=== PATIENT | female | born 1945 | race Caucasian/White ===

== ENCOUNTER → 2017-04-15 | Outpatient (CLI) | payer OTHER ==
[~2017-04-15] MED LIST: CMD1 PO; DLD2 PO; FRRG PO; LSXUNK; MULT-506 PO
--- NOTE | 2017-04-18 12:30 | MAMMOGRAPHY REPORT ---
BILATERAL DIGITAL SCREENING MAMMOGRAM WITH CAD: 04/15/2017 CLINICAL HISTORY: Routine screening. Patient has no complaints. TECHNIQUE: Current study was also evaluated with a Computer Aided Detection (CAD) system. Bilateral CC and MLO views were obtained. COMPARISON: Comparison is made to exams dated: 02/27/2016 mammogram, 01/24/2015 mammogram, 01/18/2014 ma mmogram, 01/12/2013 mammogram, 01/07/2012 mammogram, and 10/30/2010 mammogram - [facility]. BREAST COMPOSITION: There are scattered areas of fibroglandular density in both breasts. FINDINGS: No suspicious masses, calcifications, or areas of architectural distortion are noted in ei ther breast. There has been no significant interval change compared to prior exams. IMPRESSION: ACR BI-RADS CATEGORY 1: NEGATIVE There is no mammographic evidence of malignancy. A 1 year screening mammogram is recommended. The pa tient will receive written notification of the results. Approximately 10% of breast cancers are not detected with mammography. A negative mammographic report should not delay biopsy if a clinically suggestive mass is present. Geovanna Kimble M.D. /:04/15/2017 16:27:50 Art Appraiser: [place]), [facility] letter sent: Normal 1/2 BI-RADS Code: ACR BI-RADS Category 1: Negative
== END | disposition home or self-care (01) ==
LOC: C.MAMM 14:42
PROVIDERS: ATTEND Family Medicine
DX: Z12.31 Encounter for screening mammogram for malignant neoplasm of breast (principal)

== ENCOUNTER 2020-11-03 08:20 | Observation (INO) ==
--- NOTE | 2020-10-29 09:46 | Anesthesiology Consultation ---
Date of Service October 29, 2020 Assessment & Plan (1) Encounter for pre-operative examination: Chart Review Chart Review: Acceptable Risk for Surgery (pending preop Covid testing ) and Patient NOT seen in Pre Admission Testing Per nursing assessment 10/07/2020, patient denies any recent travel. No known Covid infection in the past 90 days. No known Covid positive contacts or Covid related symptoms. Covid test 10/27/20= results pending Seen by cardio 11/21/19= Patient was evaluated by cardiology 11/21/19 for this upcoming surgery (originally scheduled 12/03/19 > rescheduled to 09/08/20 > rescheduled again to 11/03/20). "She is currently stable and asymptomatic from a cardiovascular standpoint with no anginal symptoms occurring at >4 METS of activity. She has no evidence of CHF or significant valvular abnormality. Her preop ECG showed inferior AK, but when compared to prior study in 2012, which was also done for pre-op, the finding was not new. Given this information, patient is at an acceptable risk to proceed with surgery without any additional cardiovascular testing or intervention." History Surgery Operation Date: 11/03/20 09:20 Proposed Procedures p Right Total Knee Revision - Óscar Greco MD Height/Weight Height: 5 ft 2 in Weight: 125.9 kg Allergies Allergy/AdvReac Type Severity Reaction Status Date / Time adhesive Allergy Severe itchy, Verified 10/07/20 10:18 blisters, and redness oxycodone Allergy Severe full body Verified 10/07/20 10:18 hives, skin turned purple (no cyanosis) Sulfa (Sulfonamide Allergy Mild Hives Verified 10/07/20 10:18 Antibiotics) Medications Home Medications Medication Instructions Recorded Confirmed Last Taken omeprazole 20 mg capsule,delayed 20 mg PO DAILY PRN 10/12/19 10/07/20 Unknown release biotin 1 mg PO 3XWK 11/07/19 10/07/20 Unknown furosemide 40 mg PO UD PRN 11/07/19 10/07/20 Unknown multivitamin 1 tab PO QAM 11/07/19 10/07/20 Unknown levothyroxine 25 mcg PO QAM 08/13/20 10/07/20 Unknown Past Medical History Medical History (Updated 10/29/20 @ 09:48 by Magali Springer PA-C) GERD (gastroesophageal reflux disease) controlled History of benign thyroid tumor Hypothyroidism Morbid obesity Osteoarthritis Urgency incontinence Past Family History Family History Other No family history of adverse response to anesthesia Past Surgical History Surgical History History of bilateral tubal ligation History of breast biopsy History of colonoscopy History of partial thyroidectomy 05/2020 History of total right knee replacement (TKR) S/P excision of lipoma neck area Status post total left knee replacement Social History Smoking Status: Former smoker tobacco type: cigarettes Do You Dip or Chew Tobacco: No Smoking End Date: 2010 Hx Alcohol Use: No Hx Substance Use: No substance use type: does not use Testing Laboratory Results Laboratory Tests 10/27/20 10/27/20 10/27/20 13:49 13:49 13:49 WBC 8.37 Hgb 14.1 Hct 43.0 Plt Count 324 PT 10.3 INR 1.0 Sodium 141 Potassium 3.7 Chloride 105 Carbon Dioxide 29 BUN 8 Creatinine 0.78 Glucose 88 10/27/20= T&S: A positive, antibody negative Electrocardiogram Date: 11/09/19 NSR at 89bpm. LAD. Inferior infarct. Subsequently seen by cardiology 11/21/19- no further workup on EKG needed from their perspective. Chest X-Ray Date: 11/09/19 Interval increased prominence of the superior mediastinum representing substernal thyroid versus superior mediastinal mass. This displaces the trachea to the left. CT the chest is recommended for initial evaluation. The lungs are clear. The pulmonary vasculature is normal. Other Testing Chest CT: 11/21/19: The radiographic abnormality corresponds to a large and probably cystic right lobe thyroid lesion([id number]). This extends into the superior mediastinum with leftward deviation mild narrowing of the adjacent trachea. Correlation with a dedicated thyroid ultrasound is recommended for f urther assessment. Cardiomegaly and mild emphysema. There is no airspace consolidation or pleural effusion. Hepatic steatosis. Thyroid u/s: 11/26/19: Right lobe of the thyroid is enlarged measuring 7.7 x 3.9 x 5.9 cm. Left lobe of the thyroid is normal in size measuring 3.2 x 1.1 x 1.5 cm. There is a dominant right thyroid cystic appearing lesion with internal septations which measures 5.9 x 3.4 x 5.5 cm. Poor visualization of normal right thyroid parenchyma. Left posterosuperior thyroid nodule measures 9 x 5 x 7 mm. No lymphadenopathy.
--- NOTE | 2020-10-29 23:22 | History and Physical Report ---
DATE OF ADMISSION: 11/03/2020 CHIEF COMPLAINT: Bilateral knee pain and discomfort, right side greater than the left after knee replacement surgery. HISTORY OF PRESENT ILLNESS: The patient is a 74-year-old female who is now about 9 years out from a right knee replacement and 10 years out from a left. The right leg was done on 11/05/2011. She did quite well for the first 4 or 5 years, but over the past 5 years, she has developed increased pain and discomfort in both her knees, right side worse than left. She has gained a lot of weight due to her limited mobility. I had ____ seen her about 5 years or so and the x-rays looked pretty good and her workup was negative at that time. She then came back and saw Dr. De La Torre about a year ago and x-rays showed obvious loosening of the tibial tray. We had actually scheduled for surgery back then, but she had to cancel due to some thyroid issues. She has been rescheduled a couple of times now due to the COVID issue. She continues to be limited by pain and discomfort, right side greater than the left. She has a very limited weightbearing and walking tolerance due to pain. We did do an infectious workup. Her sed rate and C-reactive protein were slightly elevated. I did attempt to aspirate her knee, but really did not get much fluid at all. There was a little blood that we got out of it and we did send it for culture, which was negative. She has had no clinical signs of infection. She now would like to have her right knee fixed. PAST MEDICAL HISTORY: Significant for, 1. Morbid obesity with a BMI of 51. 2. Gastroesophageal reflux disease. PAST SURGICAL HISTORY: Include, 1. Right knee replacement done on 11/05/2011. 2. Left knee replacement on 11/23/2010. 3. Thyroid excision. ALLERGIES: None. CURRENT MEDICATIONS: Include, 1. Lasix. 2. Omeprazole. 3. Vitamins. 4. Thyroid replacement. SOCIAL HISTORY: A 74-year-old female. Lives in [place]. No significant alcohol or smoking intake. FAMILY HISTORY: Noncontributory. REVIEW OF SYSTEMS: Negative for diabetes, neurologic problems, vascular problems, or bleeding disorders. No chest pain or shortness of breath. No history of DVT or PE. PHYSICAL EXAMINATION: GENERAL: Reveals a pleasant, obese, middle-aged female. She looks to be in reasonably good health other than her obesity. HEENT: Benign. NECK: Supple, no lymphadenopathy. LUNGS: Clear to auscultation. HEART: Has a regular rate and rhythm. ABDOMEN: Soft, nontender, nondistended. EXTREMITIES: Grossly neurovascularly intact except as follows: Examination of the right knee reveals the patient walks with a waddling gait. She clearly limps on the right side. She does go into varus with weightbearing. She has got a small knee effusion. Large soft tissue envelope. Range of motion is 0 to about 90. Her incision has healed nicely. There is no warmth, Examination of the left knee reveals a well-healed incision. Fairly neutral alignment. Range of motion 0-110. X-RAYS: X-rays of the right knee reviewed. Shows evidence of previous total knee replacement. The tibial component is clearly tilted into varus and shows loosening of the tibial tray. She has got some osteolysis. She also has more significant osteolysis around the femoral component. No obvious loosening on this side. Left knee replacement still looks to be well fixed. 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 She has become debilitated by her pain. We actually scheduled her revision surgery a year ago, but she had to cancel due to some thyroid issues and then COVID epidemic. She would like to have this fixed. We are going to take her to the operating room and do a right total knee revision. If we get in there signs of infection, we will have to place an antibiotic spacer. She did have an infectious workup, which has all been negative except for a slightly elevated sed rate and C-reactive protein. I did attempt to aspirate her knee, but could not get much out and what we did we sent for culture, which was negative. We will plan on revising her knee. We will use stems in the tibia and the femur. The risks and benefits of revision knee replacement were explained to the patient including, but not limited to, DVT, PE, , infection, neurological injury, vascular injury, bleeding problem, pain, limited range of motion, stiffness, failure to relieve her symptoms, incomplete relief of symptoms, need for further surgery in the future, fracture, leg length inequality, nerve palsy, etc. The patient understands and desires to proceed. Informed consent was obtained. Due to the tenuous nature of her bone stock, we will have a hinged knee available if we needed. As far as pain control, she did not do well with oxycodone. We will likely use Dilaudid for postoperative pain control. She is planning to be discharged to home using [facility] home health program.
[~2020-11-03 08:20] MED LIST changes: +ACETAMINOPHEN 500 MG TAB PO SCH; +BUPIVACAINE LIPOSOME/PF 266 MG, BUPIVACAINE/EPINEPHRINE 50 ML, SODIUM CHLORIDE 0.9% 30 ... INFIL SCH; -CMD1 PO; -DLD2 PO; +FAMOTIDINE 20 MG TAB PO SCH; -FRRG PO; +GABAPENTIN 300 MG CAP PO SCH; +LR 500ML BOLUS, THEN 15ML/HR IV SCH; +LR 60ML/HR IV SCH; -LSXUNK; +METOCLOPRAMIDE HCL 10 MG TABLET PO SCH; -MULT-506 PO; +TRANEXAMIC ACID 1,000 MG **IV Intra-op IV SCH
[2020-11-03] MEDS ORDERED: BUPIVACAINE 0.25% 30 ML VIAL ONE ×3 (08:31→11:26)
[2020-11-03] MEDS ORDERED: EPINEPHrine INJ 1 MG/ML AMP ONE ×3 (08:32→11:26)
[2020-11-03] MEDS ORDERED: BUPIVACAINE 0.5 % 5 MG/1 ML PF 10ML VIAL ONE (08:32)
--- NOTE | 2020-11-03 09:03 | History & Physical Bridge Note ---
Date of Service November 03, 2020 History & Physical Bridge Note I have examined the patient, reviewed the History & Physical and in the interval since the performance of the History & Physical I have noted the following changes of clinical significance: no changes noted
[2020-11-03] MEDS ORDERED: ePHEDrine sulfate 50 MG/ML SYR ONE (09:45)
[2020-11-03] MEDS ORDERED: PHENYLEPHRINE 100MCG/ML 5ML SYR ONE (09:45)
[2020-11-03] MEDS ORDERED: LIDOCAINE HCL 2% 2 ML VIAL/AMP(20MG/ML) INFIL ONE (09:45)
[2020-11-03] MEDS ORDERED: PROPOFOL IV EMULSION 10 MG/ML 20 ML VIAL IV ONE (09:45)
[2020-11-03] MEDS ORDERED: MIDAZOLAM HCL 1 MG/ML 2ML VIAL ONE (09:46)
[2020-11-03] MEDS ORDERED: fentaNYL citrate 100 MCG/2 ML VIAL ONE ×2 (09:46→12:10)
[2020-11-03] MEDS ORDERED: fentaNYL citrate 100 MCG/2 ML VIAL IV PRN (10:36)
[2020-11-03] MEDS ORDERED: ATROPINE SULFATE 0.1 MG/ML 10ML SYR IV PRN (10:36)
[2020-11-03] MEDS ORDERED: PROMETHAZINE HCL 12.5 MG in SODIUM CHLORIDE 0.9% 50 ML IV PRN (10:36)
[2020-11-03] MEDS ORDERED: ePHEDrine sulfate 50 MG/ML AMP IV PRN (10:36)
[2020-11-03] MEDS ORDERED: ONDANSETRON INJ 2 MG/ML 2 ML VIAL IV PRN ×2 (10:36→16:36)
[2020-11-03] MEDS ORDERED: HYDROmorphone INJ 2 MG/ML SYR/VIAL IV PRN (10:36)
[2020-11-03] MEDS ORDERED: SODIUM CHLORIDE 0.9% PF 50 ML VIAL ONE (11:10)
[2020-11-03] MEDS ORDERED: BUPIVACAINE LIPOSOME 1.3% 266 MG/20 ML VIAL ONE (11:10)
[2020-11-03] MEDS ORDERED: BACITRACIN INJ 50,000 UNIT VIAL ONE (11:10)
[2020-11-03] MEDS ORDERED: VANCOMYCIN HCL 1000MG/20ML VIAL ONE (11:13)
[2020-11-03] MEDS ORDERED: TOBRAMYCIN SULF 40 MG/ML 2 ML VIAL ONE (11:14)
[2020-11-03] MEDS ORDERED: DEXAMETHASONE SOD INJ 4 MG/ML VIAL ONE (12:13)
[2020-11-03] MEDS ORDERED: LARYING-O-JET KIT (LTA) ONE (12:13)
[2020-11-03] MEDS ORDERED: SUCCINYLCHOLINE CHLORIDE 20 MG/ML 10 ML VIAL IV ONE (12:13)
[2020-11-03] MEDS ORDERED: NEOSTIGMINE METHYLSULFATE 5 MG/5 ML SYR ONE (12:13)
[2020-11-03] MEDS ORDERED: GLYCOPYRROLATE 0.2 MG/ML VIAL ONE (12:13)
[2020-11-03] MEDS ORDERED: ROCURONIUM BROMIDE 10 MG/ML 5 ML VIAL IV ONE (12:13)
[2020-11-03] MEDS ORDERED: ONDANSETRON INJ 2 MG/ML 2 ML VIAL ONE ×2 (12:13→14:36)
[2020-11-03] MEDS ORDERED: LABETALOL HCL IV 5 MG/ML 20ML IV ONE ×2 (13:17→13:25)
--- NOTE | 2020-11-03 14:58 | Post Operative Brief Note ---
PG Immediate Post Op with CF Date of Surgery November 03, 2020 Pre & Post Diagnosis Operation Date: 11/03/20 10:40 Pre-Op Diagnosis: Aseptic loosening right total knee replacement Post-Op Diagnosis: Aseptic loosening right total knee replacement I identified the patient and participated in the time-out.: Yes Procedure Operation Date: 11/03/20 10:40 Actual Procedures p Right Total Knee Revision(Right) - Óscar Greco MD Surgeon Óscar Greco MD Senior Network Systems Engineer Nam, PAC Estimated Blood Loss 150 Findings Consistent with Post-Op Diagnosis Fluids 2000 cc Specimens Specimen Description: A. Right knee bone and tissue Frozen section #1: Right knee synovium (poly's per high powered field) Micro #1: Right knee fluid (aerobic, anaerobic, C&S) Drains Cordova Catheter Anesthesia Type General Regional Complications none Disposition Accompanied Patient To Recovery: No Disposition: Recovery Room
[2020-11-03] MEDS ORDERED: HYDROmorphone HCL 2 MG TAB PO PRN (15:03)
--- NOTE | 2020-11-03 15:49 | XRay Report ---
RIGHT KNEE 2 VIEWS History: Right total knee arthroplasty. Degenerative arthritis. Postop. FINDINGS: The patient is status post revision of a long stemmed right total knee arthroplasty. The german rdware is intact. No fracture or dislocation. Skin lizzy are in place. IMPRESSION: Right total knee arthroplasty. No evidence for hardware complication. ACT 112: Negative or not required by law. Electronically signed by: Roberto Castañeda M.D. 11/03/2020 3:48 PM
--- NOTE | 2020-11-03 16:34 | Anesthesiology Progress Note ---
Date of Service November 03, 2020 Anesthesia Post Procedure Vital Signs Vital Signs: Temp Pulse Pulse Resp BP Pulse Ox 11/03/20 16:00 66 17 154/77 H 93 11/03/20 15:50 97.7 F 73 20 154/77 H 93 11/03/20 15:40 76 17 165/82 H 94 11/03/20 15:30 76 17 157/89 H 96 11/03/20 15:20 82 17 161/84 H 92 11/03/20 15:13 97.3 F L 83 17 167/95 H 95 11/03/20 08:54 97.9 F 94 H 24 189/89 H 95 Transfer of Care Handoff Completed per policy Notes Mental Status: alert / awake / arousable and participated in evaluation Patient Amnestic to Procedure: Yes Nausea / Vomiting: adequately controlled Pain: adequately controlled Airway Patency, RR, SpO2: stable & adequate BP & HR: stable & adequate Hydration State: stable & adequate Anesthetic Complications: no major complications apparent and Pt Satisfied with anesthetic care
[2020-11-03] MEDS ORDERED: MAGNESIUM HYDROXIDE SUSP 30 ML UDC PO PRN (16:36)
[2020-11-03] MEDS ORDERED: HYDROmorphone INJ 0.5 MG/0.5 ML SYR IV PRN (16:36)
[2020-11-03] MEDS ORDERED: bisacodyL 10 MG SUPP PR PRN (16:36)
[2020-11-03] MEDS ORDERED: FUROSEMIDE 40 MG TAB PO PRN (16:36)
[2020-11-03] MEDS ORDERED: KETOCONAZOLE 2% CR 15 GM TUBE EXT PRN (16:36)
[2020-11-03] MEDS ORDERED: NALOXONE HCL 0.4 MG/1 ML VIAL/CARP IV PRN (16:36)
[2020-11-03] MEDS ORDERED: ALUMINUM/MAGNESIUM SUSP 30 ML UDC PO PRN (16:36)
[2020-11-03] MEDS ORDERED: METOCLOPRAMIDE HCL INJ 5 MG/ML 2 ML VIAL IV PRN (16:36)
[2020-11-03] MEDS ORDERED: PANTOprazole 40 MG TAB PO PRN (16:48)
--- NOTE | 2020-11-03 17:07 | Operative Report ---
Post Operative Report Pre & Post Diagnosis Operation Date: 11/03/20 10:40 Pre-Op Diagnosis: Aseptic loosening right total knee replacement Post-Op Diagnosis: Aseptic loosening right total knee replacement I identified the patient and participated in the time-out.: Yes Procedure Operation Date: 11/03/20 10:40 Actual Procedures p Right Total Knee Revision(Right) - Óscar Greco MD Surgeon Óscar Greco MD Cable Spooler Nam, PAC Estimated Blood Loss 150 Findings Consistent with Post-Op Diagnosis Operative findings revealed aseptic loosening of both the femoral and tibial components. The patella was well fixed without signs of wear. She had extensive osteolysis of the posterior medial femoral condyle missing about half the condyle. She had extensive other extensive osteolysis around the distal femur but not so severe. There is no clinical signs of infection. Fluids 2000 cc Specimens Knee joint fluid sent for stat Gram stain aerobic and anaerobic culture. Frozen section sent for polys per high-power field which revealed 0 polys per high-power field. Drains None. Anesthesia Type General Regional Complications none Disposition Accompanied Patient To Recovery: No Disposition: Recovery Room Indications Patient is a 74-year-old female who is now about 9 years out from a right total knee replacement. She did well for the first 4 to 5 years but then developed insidious onset of pain and discomfort in her knee that got worse. She was initially evaluated 5 years ago and everything looked pretty good. She did not have any follow-up. She more recently came back about a year ago with increasing pain. X-rays showed obvious loosening of the tibial tray. She had extensive work-up for infection which was negative. She was scheduled for surgery on multiple occasions but canceled that due to her thyroid issue and then the Covid epidemic. She is now presents for revision surgery. Description of Procedure Operative implants consist of: 1. Biomet Vanguard III 6062.5 right posterior stabilized femoral component with 5 mm distal medial and distal femoral augments and 10 mm posterior medial augment with a 15 x 80 mm offset stem with a 5.0 mm offset. 2. Biomet size 63 tibial tray with 5 mm medial and lateral left tibial augments, 2.5 mm offset, 12 x 80 mm tibial stem. 3. 18 mm constrained polyethylene bearing. The patient was taken the operating identified and placed in the operating table supine position but all contractors were properly padded. IV antibiotics tried by anesthesia team. A abductor canal block had provided holding area. They attempted the a spinal anesthetic but were unsuccessful. Therefore a general anesthetic was implemented. Cordova catheter was placed in sterile fashion. A right thigh turn was then placed in the right lower extremities and prepped and draped in usual sterile fashion. The right leg was elevated exsanguinated with use of an Esmarch and turns placed at 3 mmHg. An anterior approach to the right knee was then performed using the previous incision and extending it just slightly proximally and distally. Sharp dissection was got through subcutaneous tissue down the extensor mechanism. A medial parapatellar arthrotomy incision was made. Serous effusion was encountered. This was sent off for stat Gram stain aerobic anaerobic culture. Some subperiosteal dissection was carried out medially. I did an extensive synovectomy of the suprapatellar pouch and medial lateral gutters. The synovium was sent for frozen section which revealed 0 polys per high-power field. There is no clinical suspicion of an infection so I elected to proceed with the procedure. The polyethylene component was removed. A sawblade was then used to loosen the femoral component and it was tapped off without incident. There was extensive osteolysis of the posterior medial femoral condyle. The tibia was then exposed. An osteotome was used to lift the tibia off the cement mantle. There was complete debonding of the cement mantle. A drill and chisel were then used to remove the cement from the tibial surface and metaphysis. I then began preparing the bones for implantation. I then reamed the tibia up to a size 12 mm. The reamer was left in place and I cut the proximal tibia to remove about a millimeter or 2 of bone from most efficient aspect the medial side. This took a very large section segment off laterally. We sized the tibia to a size 63. I did place a 5 mm augments medially and laterally as it took a fairly large piece of bone off. This is pinned in place and prepared for a 2.5 mm offset stem with a small cruciate wing. The implant was assembled and placed Attention drawn the femur. Distal femur examined with sharp drill. I then reamed up to a size 15 to get good fit with a 15. I then used the 5 degree valgus cutting guide and cut the distal femur to remove just a small amount of bone from the most deficient aspects of the medial lateral sides which were fairly even at 5 degree valgus cut. There was a pretty extensive wear so we did and placed in some 5 mm augments. The femur was sized to a size 62.5. The AP cutting block was pinned parallel epicondylar axis using the offset stem and the anterior cut, anterior chamfer, posterior cut, posterior chamfer cuts were made. The femoral component was assembled and placed. The box cut was made. I then cut for the posterior medial augment. I then trialed the knee. The 18 mm insert fit most appropriately. There we did elect to place a constrained implant due to her slight varus valgus laxity. I did evaluate the patella and there is no need for patella work as it was well fixed with no significant wear. We spent quite a bit of time cleaned the bone of all fibrous debris. The tourniquet was then let down for turn time 110 minutes. Yes implants were then assembled. The leg was then Esmarch again and irrigated. The tourniquet was down for a total of 11 minutes. A triple batch of Palacos G cement was mixed with 2 additional bottles of vancomycin. A Biomet Vanguard size 62.5 right posterior stabilized femoral component with the described stem and augments was placed followed by a 63 tibial tray with its associated augments and stem. All extraneous cement was removed. A temporary polyethylene insert was placed until the cement hardened. Once the cement hardened a final cement check was performed. I then placed an 18 mm constrained insert. The patella tracked nicely. It was well balanced. Attention drawn toward closing. The tourniquet was let down for second tourniquet time of 24 minutes. Hemostasis surgery was electrocautery. I did inject locally with 100 cc of combination of 20 cc of Exparel, 30 cc normal saline, 50 cc of quarter percent Marcaine with epinephrine. The patient did receive 1 g tranexamic acid. The wound was once again irrigated extensively. The extensor mechanism closed with combination 1 PDS suture #1 Vicryl suture in [id number] fashion. Extensor mechanism checked found to be intact the subcutaneous tissue then closed with 2 Dexon suture in a buried interrupted fashion skin was closed skin lizzy. Leg was then cleaned and dried a sterile dressing composed Xeroform, 4 x 4's, sterile cast padding, Don bandage were applied. Patient transferred to the recovery room after being brought out of general anesthesia in stable condition. She tolerated procedure well there are no complications. Giuliano Browning, my physician assistant finance director, was present for the entire procedure. His assistance was essential and required for appropriate patient positioning, prepping and draping, surgical exposure, performing the technical details of the operation, placement the implants, closure of the wound, and placement of the sterile bandage.. I attest to the content of the Intraoperative Record and any orders documented therein. Any exceptions are noted below.
[2020-11-03] MEDS: SODIUM CHLORIDE 0.9% 1000ML 1,000 ML IV SCH ×2 (17:20→23:32)
[2020-11-03] MEDS: KETOROLAC TROMETHAMINE 15 MG/ML VIAL IV SCH ×2 (17:20→23:32)
[2020-11-03] MEDS: FERROUS GLUCONATE 324 MG TAB PO SCH (17:21)
[2020-11-03] MEDS: ASCORBIC ACID 500 MG TAB PO SCH (17:21)
[2020-11-03] MEDS: ASPIRIN 81 MG ECTAB PO SCH (20:07)
[2020-11-03] MEDS: DOCUSATE SODIUM 100 MG CAP PO SCH (20:07)
[2020-11-03] MEDS: ceFAZolin 2000MG 2,000 MG/15 ML SYR IV SCH (20:07)
[2020-11-03] MEDS: SENNA 8.6 MG TAB PO SCH (20:08)
[2020-11-03] MEDS ORDERED: TRANEXAMIC ACID / 0.7% NACL 1,000 MG/100 ML BAG IV SCH (21:01)
[2020-11-03] MEDS: ACETAMINOPHEN 500 MG TAB PO SCH (21:13)
[2020-11-03] MEDS: TAPENTADOL HCL ER 50 MG TABCR PO SCH (21:14)
[2020-11-04] MEDS: ceFAZolin 2000MG 2,000 MG/15 ML SYR IV SCH (05:15)
[2020-11-04] MEDS: KETOROLAC TROMETHAMINE 15 MG/ML VIAL IV SCH ×4 (05:17→22:48)
[2020-11-04] MEDS: LEVOTHYROXINE SODIUM 50 MCG TABLET PO SCH (05:18)
[2020-11-04] MEDS: ACETAMINOPHEN 500 MG TAB PO SCH ×3 (05:18→22:47)
[2020-11-04 06:13] LABS: Hematocrit (blood only) 39.3 % (37-47); Hemoglobin 12.6 g/dL (12.0-16.0); Mean Corpuscular Hemoglobin 29.9 pg (25-34); Mean Corpuscular Hgb Conc 32.1 g/dL (32-36); Mean Corpuscular Volume 93.1 fL (80-100); Mean Platelet Volume 10.7 fL (7.4-10.4); Platelet Count 280 K/uL (130-400); RDW Coefficient of Variation 13.2 % (11.5-14.5); RDW Standard Deviation 45.2 fL (36.4-46.3); Red Blood Count 4.22 M/uL (4.2-5.4); White Blood Count 11.86 K/uL (4.8-10.8)
[2020-11-04 06:47] LABS: BUN Creatinine Ratio 9.1 (10-20); Calcium 7.9 mg/dl (8.5-10.1); Creatinine Clr Calc Pharmacy 61.4 ml/min; Est GFR (African American) 61.7; Est GFR (Non-African American) 53.3; Potassium 3.9 mmol/L (3.5-5.1)
[2020-11-04] MEDS ORDERED: dexAMETHasone 4 MG TAB PO SCH (08:00)
--- NOTE | 2020-11-04 08:05 | Anesthesiology Progress Note ---
Date of Service November 04, 2020 Anesthesia Post Procedure Vital Signs Vital Signs: Temp Pulse Pulse Pulse Resp BP Pulse Ox 11/04/20 06:21 94 11/04/20 02:43 37.0 C 80 18 114/73 95 11/03/20 22:02 37.1 C 85 18 127/80 95 11/03/20 19:58 89 18 96 11/03/20 19:16 37.1 C 76 16 158/85 H 96 11/03/20 18:15 67 18 164/84 H 98 11/03/20 17:15 73 18 170/94 H 97 11/03/20 16:48 70 18 171/78 H 97 11/03/20 16:15 36.2 C L 66 16 162/83 H 96 11/03/20 16:00 66 17 154/77 H 93 11/03/20 15:50 36.5 C 73 20 154/77 H 93 11/03/20 15:40 76 17 165/82 H 94 11/03/20 15:30 76 17 157/89 H 96 11/03/20 15:20 82 17 161/84 H 92 11/03/20 15:13 36.3 C L 83 17 167/95 H 95 11/03/20 08:54 36.6 C 94 H 24 189/89 H 95 Pain Intensity Right Knee: Pain Intensity: 5 Notes Mental Status: alert / awake / arousable and participated in evaluation Patient Amnestic to Procedure: Yes Nausea / Vomiting: see Notes below Pain: adequately controlled Airway Patency, RR, SpO2: stable & adequate BP & HR: stable & adequate Hydration State: stable & adequate Anesthetic Complications: no major complications apparent and Pt Satisfied with anesthetic care
[2020-11-04] MEDS: TAPENTADOL HCL ER 50 MG TABCR PO SCH (08:14)
[2020-11-04] MEDS: ASCORBIC ACID 500 MG TAB PO SCH ×2 (08:17→17:25)
[2020-11-04] MEDS: MULTIVITAMIN TAB PO SCH (08:18)
[2020-11-04] MEDS: ASPIRIN 81 MG ECTAB PO SCH ×2 (08:18→19:58)
[2020-11-04] MEDS: FERROUS GLUCONATE 324 MG TAB PO SCH ×2 (08:18→17:25)
[2020-11-04] MEDS: DOCUSATE SODIUM 100 MG CAP PO SCH ×2 (08:19→19:58)
[2020-11-04] MEDS ORDERED: MULTIVITAMIN TAB PO SCH (09:00)
--- NOTE | 2020-11-04 09:30 | Progress Notes ---
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 She is doing pretty well. She says her knee just sore. No chest pain or shortness of breath. Not feeling dizzy or lightheaded. OBJECTIVE: VITAL SIGNS: Temperature 36.6. Vital signs stable. GENERAL: Shows a pleasant elderly female. She was walking around her room using a walker this morning. LUNGS: Clear to auscultation. HEART: Has a regular rate and rhythm. ABDOMEN: Soft, nontender, nondistended. EXTREMITIES: Grossly neurovascularly intact except as follows. Examination of the right leg reveals the leg to be well aligned. Her dressing is clean, dry and intact. She can dorsiflex and plantarflex her foot appropriately. She is neurologically intact. LABORATORY DATA: Hemoglobin 12.6. Hematocrit 39.3. White cell count 11.86. Electrolytes are stable. CULTURE RESULTS: Culture results are pending. 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 She is doing well. Pain is pretty well controlled. She is quite deconditioned. PLAN: 1. DVT prophylaxis including thigh-high TEDs, SCDs, and aspirin twice a day. 2. PT/OT. She can weightbear as tolerated to right lower extremity. 3. Pain control, doing okay with current pain regimen. 4. Disposition: She is planning to be discharged to home with some home health once adequately recovered and medically stable. Likely discharge tomorrow if doing okay.
[2020-11-04] MEDS: SENNA 8.6 MG TAB PO SCH (19:58)
[2020-11-05] MEDS: ACETAMINOPHEN 500 MG TAB PO SCH (05:07)
[2020-11-05] MEDS: LEVOTHYROXINE SODIUM 50 MCG TABLET PO SCH (05:07)
[2020-11-05] MEDS: KETOROLAC TROMETHAMINE 15 MG/ML VIAL IV SCH ×2 (05:09→10:16)
[2020-11-05] MEDS: MULTIVITAMIN TAB PO SCH (07:40)
[2020-11-05] MEDS: ASPIRIN 81 MG ECTAB PO SCH (07:41)
[2020-11-05] MEDS: FERROUS GLUCONATE 324 MG TAB PO SCH (07:41)
[2020-11-05] MEDS: DOCUSATE SODIUM 100 MG CAP PO SCH (07:41)
[2020-11-05] MEDS: ASCORBIC ACID 500 MG TAB PO SCH (07:41)
--- NOTE | 2020-11-05 08:28 | Progress Notes ---
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 She is doing pretty well. Pain is controlled. Therapy went okay. Denies any chest pain or shortness of breath. Not feeling dizzy or lightheaded. OBJECTIVE: VITAL SIGNS: Temperature 36.7. Vital signs stable. GENERAL: Shows a pleasant, middle-aged female. She is lying in bed, looks pretty comfortable this morning. EXTREMITIES: Examination of the right leg reveals the dressing to be clean, dry and intact. Leg is well aligned. She can dorsiflex and plantarflex her foot appropriately. She is neurologically intact. CULTURE RESULTS: Culture results are no growth to date. ASSESSMENT: A 74-year-old female postop day 2 from a right revision knee replacement for aseptic loosening. She is doing pretty well. Pain is controlled. She is neurologically intact. PLAN: 1. DVT prophylaxis including thigh-high TEDs, SCDs, and aspirin twice a day. 2. PT/OT. She can weightbear as tolerated. Right total knee protocol. 3. Pain control. She is doing okay with current pain regimen. 4. Disposition: Plan is to discharge her today to home with some home health if does okay in therapy and pain controlled.
--- NOTE | 2020-11-09 09:32 | Discharge Summary ---
Date of Service November 09, 2020 Discharge Data Consultations 11/03/20 16:36 Consult Case Management - Discharge Planning Routine Procedures Performed Operation Date: 11/03/20 10:40 Actual Procedures p Right Total Knee Revision(Right) - Óscar Greco MD Hospital Course (1) Status post revision of total replacement of right knee: This patient is a 74 year old female admitted on 11/03/20 and underwent knee revision arthroplasty. She tolerated the procedure well and there were no complications. Transferred to the PACU post op and later to the orthopedic floor for further care. She was given ancef for antibiotic prophylaxis. She was also given VIBHA stockings, SCDs, and aspirin for DVT prophylaxis. Hemoglobin, hematocrit, and vital signs were monitored during her hospital stay and remained stable. Did not require any blood transfusions. There were no complications during her hospital stay. By post op day #2 the patient was tolerating a regular diet, pain was reasonably controlled with oral pain medicine, and she was participating in physical therapy. On post op day #2 the patient was discharged home and set up with home health care. She was given printed discharge instructions including prescriptions for extra strength tylenol, aspirin, and dilaudid. Continue physical therapy, weight bearing as tolerated. Continue VIBHA stockings. Follow up approximately 2 weeks post op or sooner if there are problems or concerns. Coding Level of Care Code None Diagnoses Status post revision of total replacement of right knee Z96.651
== END 2020-11-05 11:16 | disposition home health service (06) ==
LOC: ASU 08:20 → 3E 08:20